=== PATIENT | female | born 1935 | race Caucasian/White ===

== ENCOUNTER → 2017-01-06 | Outpatient (CLI) | payer OTHER ==
[~2017-01-06] MED LIST: ACET-749 PO; ACET650T97 PO; ATOR10TA88 PO; CALC-388 PO; CARV25TA2 PO; CHOL20007 PO; CRG125 PO; CYAN10005 PO; HYDR25TA4 PO; LOSA1TAB PO; LOSA1TAB38 PO; MULT-931 PO; TRAM-10 PO; WARF2TAB8 PO; WARF4TAB8 PO
[2017-01-06 15:35] LABS: BASO % 0.3 %; BASO ABS # 0.02 K/uL (0-0.2); COMPLETE YES; EOS % 2.6 %; HEMATOCRIT 35.3 % (37-47); IG% 0.1 %; LYMPH % 25.4 %; LYMPH ABS # 1.75 K/uL (1.2-3.4); MEAN CORPUSCULAR HEMOGLOBIN 33.1 pg (25-34); MEAN CORPUSCULAR HGB CONC 33.1 g/dl (32-36); MEAN PLATELET VOLUME 10.3 fL (7.4-10.4); NEUT % 62.6 %; PLATELET COUNT 165 K/uL (130-400); RED BLOOD COUNT 3.53 M/uL (4.2-5.4)
[2017-01-06 15:57] LABS: BLOOD UREA NITROGEN 20 mg/dl (7-18); BUN/CREATININE RATIO 16.8 (10-20); CALCIUM 9.5 mg/dl (8.5-10.1); CARBON DIOXIDE 31 mmol/L (21-32); CHLORIDE 104 mmol/L (98-107); GLUCOSE 94 mg/dl (70-99); POTASSIUM 3.7 mmol/L (3.5-5.1); SODIUM 142 mmol/L (136-145)
[2017-01-06 15:58] LABS: ALT/SGPT 23 U/L (12-78); AST/SGOT 16 U/L (15-37); MAGNESIUM 1.8 mg/dl (1.8-2.4)
[2017-01-06 16:08] LABS: ALB/GLOB RATIO 1.2 (0.9-2); ALKALINE PHOSPHATASE 56 U/L (45-117); THYROID STIMULATING HORMONE 0.882 uIu/ml (0.300-4.500)
== END | disposition home or self-care (01) ==
LOC: C.LAB1850 14:55
PROVIDERS: ATTEND Internal Medicine
DX: E55.9 Vitamin D deficiency, unspecified (principal); E53.8 Deficiency of other specified B group vitamins; R06.02 Shortness of breath

== ENCOUNTER → 2017-03-09 | Outpatient (CLI) | payer OTHER ==
[~2017-03-09] MED LIST changes: +ATOR10TA82 PO; -ATOR10TA88 PO
--- NOTE | 2017-03-09 16:43 | DIAGNOSTIC IMAGING REPORT ---
CHEST 2 VIEWS ROUTINE HISTORY: Short of breath. COMPARISON: Chest 12/19/2013. FINDINGS: The heart is mildly enlarged. This has slightly progressed. Left-sided pacemaker. No pleural effusions. No pneumothorax. No evidence for pulmonary edema. No focal lung consolidations to suggest pneumonia. IMPRESSION: Mild cardiomegaly which has slightly increased in size. Electronically signed by: Madi Camacho M.D. 03/09/2017 4:41 PM Dictated Date/Time: 03/09/2017 4:39 PM
== END | disposition home or self-care (01) ==
LOC: C.RAD1850 16:16
PROVIDERS: ATTEND Internal Medicine
DX: R06.02 Shortness of breath (principal); R94.2 Abnormal results of pulmonary function studies; I51.7 Cardiomegaly

== ENCOUNTER → 2017-03-17 | Day surgery (SDC) | payer OTHER ==
[~2017-03-17] VITALS: Ht 162.6 cm; Wt 73.0 kg
[~2017-03-17] MED LIST changes: +LIDOCAINE HCL 2% 2 ML VIAL (20MG/ML) ONE; +PROPOFOL IV EMULSION 10 MG/ML 20 ML VIAL IV ONE
[2017-03-17 06:56] VITALS: BP 128/87; PULSE 94; TEMP 36.5; O2SAT 95; Ht 162.6 cm; Wt 73.0 kg
--- NOTE | 2017-03-17 07:54 | History & Physical Bridge Note ---
H&P Re-Evaluation Bridge Note: I have examined the patient, reviewed the History & Physical and in the interval since the performance of the History & Physical I have noted the following changes of clinical significance: No changes noted
[2017-03-17 07:56] VITALS: BP 112/56; PULSE 63; O2SAT 97
[2017-03-17 07:57] VITALS: BP 116/85; PULSE 80; O2SAT 97
[2017-03-17 07:58] VITALS: BP 126/75; PULSE 85; O2SAT 97
[2017-03-17 08:00] VITALS: BP 121/70; PULSE 81; O2SAT 97
--- NOTE | 2017-03-17 08:01 | Cardiology Procedure Brief Nt ---
Preliminary Cardiology Note Procedure Date Mar 17, 2017. Pre-Procedure Diagnosis Atrial fibrillation Post-Procedure Diagnosis Same Procedure(s) Performed Electrical cardioversion Children'S Counselor Jayshree Aircraft Captain(s) None Estimated Blood Loss None Preliminary Findings Successful cardioversion with 200J Recommendations Monitor and discharge Specimens None Anesthesia Via anesthesia dept Complication(s) None Disposition laboratory chief recovery
--- NOTE | 2017-03-17 08:47 | CARDIOVERSION ---
DATE OF OPERATION: 03/17/2017 DATE OF PROCEDURE: 03/17/2017. PROCEDURE: Electrical cardioversion. HISTORY OF PRESENT ILLNESS: This is an 81-year-old woman who has a history of pacemaker implantation, as well as asymmetric septal hypertrophy. She was identified as having atrial fibrillation on pacemaker interrogation that had been present for about 3 months and she was relatively asymptomatic. It was felt advisable to consider cardioversion; however, in order to maintain sinus rhythm if possible. She is therefore brought to the laboratory for cardioversion. She is maintained on warfarin anticoagulation with a therapeutic INR. After obtaining informed consent for the procedure, she was connected to the recording apparatus and anteroposterior patch electrodes were placed. She was anesthetized by propofol anesthetic delivered by the anesthesia department, a single 200 joule biphasic synchronized shock was delivered via the anteroposterior patches with conversion to sinus rhythm. The pacemaker was evaluated and atrial pacing threshold was excellent at 0.5 volts. The pacemaker functioned normally with atrial sensing and ventricular pacing following cardioversion. The patient tolerated the procedure well, there were no complications and she will be observed briefly and then discharged. LUIS
--- NOTE | 2017-03-17 09:09 | Discharge Instructions ---
Discharge Instructions Date of Service Mar 17, 2017. Admission Reason for Admission: Atrial fibrillation Discharge Discharge Diagnosis / Problem: Electrical cardioversion Discharge Goals Goal(s): Improve disease control Activity Recommendations Activity Limitations: resume your previous activity . Instructions / Follow-Up Instructions / Follow-Up ACTIVITY RECOMMENDATIONS: * May resume driving tomorrow. SPECIAL CARE: * May apply burn ointment for skin irritation. * Please contact physician for any lightheadedness, dizziness or palpitations. Current Hospital Diet Patient's current hospital diet: AHA Diet (Heart Healthy) Discharge Diet Recommended Diet: AHA Diet (Heart Healthy) Procedures Procedures Performed: Electrical cardioversion Pending Studies Studies pending at discharge: no Medical Emergencies . Who to Call and When: Medical Emergencies: If at any time you feel your situation is an emergency, please call 911 immediately. . Non-Emergent Contact Non-Emergency issues call your: Primary Care Provider . . "Provider Documentation" section prepared by Dillon Martell. . VTE Core Measure Inpt VTE Proph given/why not?: Warfarin (Coumadin)
[2017-03-17 09:30] VITALS: BP 122/62; PULSE 63; O2SAT 95
--- NOTE | 2017-03-17 10:06 | Anesthesiology Progress Note ---
Anesthesia Post Op Note Date & Time Mar 17, 2017 at 10:06 Vital Signs Pain Intensity: 0 Vital Signs Past 12 Hours Date Time Temp Pulse Resp B/P (MAP) Pulse Ox O2 Delivery O2 Flow Rate FiO2 03/17/17 09:30 63 16 122/62 95 Room Air 03/17/17 09:15 60 16 124/52 96 Room Air 03/17/17 09:00 60 16 120/48 96 Room Air 03/17/17 08:45 67 16 113/63 96 Room Air 03/17/17 08:30 60 16 108/49 96 Room Air 03/17/17 08:25 60 16 118/52 96 Room Air 03/17/17 08:20 62 16 106/56 96 Room Air 03/17/17 08:15 60 16 96/48 96 Room Air 03/17/17 08:10 59 16 107/59 96 Room Air 03/17/17 08:05 69 16 113/56 96 Room Air 03/17/17 08:00 81 16 121/70 97 Nasal Cannula 6 03/17/17 07:58 85 16 126/75 97 Nasal Cannula 6 03/17/17 07:57 80 16 116/85 97 Nasal Cannula 6 03/17/17 07:56 63 16 112/56 97 Nasal Cannula 6 03/17/17 06:56 36.5 94 16 128/87 95 Room Air Notes Mental Status: alert / awake / arousable, participated in evaluation Pt Amnestic to Procedure: Yes Nausea / Vomiting: adequately controlled Pain: adequately controlled Airway Patency, RR, SpO2: stable & adequate BP & HR: stable & adequate Hydration State: stable & adequate Anesthetic Complications: no major complications apparent
== END | disposition home or self-care (01) ==
LOC: C.CATH 06:42
PROVIDERS: ATTEND Internal Medicine Cardiovascular Disease
DX: I48.0 Paroxysmal atrial fibrillation (principal); I25.10 Atherosclerotic heart disease of native coronary artery without angina pectoris; Z95.0 Presence of cardiac pacemaker; I51.7 Cardiomegaly; I50.30 Unspecified diastolic (congestive) heart failure; E78.5 Hyperlipidemia, unspecified; I10 Essential (primary) hypertension; M19.90 Unspecified osteoarthritis, unspecified site; Z82.49 Family history of ischemic heart disease and other diseases of the circulatory system; Z87.891 Personal history of nicotine dependence; Z79.01 Long term (current) use of anticoagulants; I25.2 Old myocardial infarction; Z86.73 Personal history of transient ischemic attack (TIA), and cerebral infarction without residual deficits

== ENCOUNTER → 2017-06-03 | Outpatient (CLI) | payer OTHER ==
[~2017-06-03] MED LIST changes: -ACET-749 PO; -ATOR10TA82 PO; +ATOR10TA88 PO; -CRG125 PO; -LIDOCAINE HCL 2% 2 ML VIAL (20MG/ML) ONE; -LOSA1TAB38 PO; -PROPOFOL IV EMULSION 10 MG/ML 20 ML VIAL IV ONE; -TRAM-10 PO
[2017-06-03 16:35] LABS: HEMATOCRIT 38.3 % (37-47); MEAN CELL VOLUME 101.1 fL (80-100); MEAN CORPUSCULAR HEMOGLOBIN 34.3 pg (25-34); MEAN CORPUSCULAR HGB CONC 33.9 g/dl (32-36); PLATELET COUNT 156 K/uL (130-400); RED BLOOD COUNT 3.79 M/uL (4.2-5.4); WHITE BLOOD COUNT 6.99 K/uL (4.8-10.8)
[2017-06-03 16:48] LABS: ALT/SGPT 16 U/L (12-78); BLOOD UREA NITROGEN 16 mg/dl (7-18); BUN/CREATININE RATIO 12.5 (10-20); CALCIUM 9.5 mg/dl (8.5-10.1); CARBON DIOXIDE 31 mmol/L (21-32); CHLORIDE 99 mmol/L (98-107); GLUCOSE 166 mg/dl (70-99); POTASSIUM 3.5 mmol/L (3.5-5.1); SODIUM 137 mmol/L (136-145)
[2017-06-03 16:59] LABS: ALB/GLOB RATIO 1.2 (0.9-2); ALKALINE PHOSPHATASE 57 U/L (45-117); AST/SGOT 17 U/L (15-37); THYROID STIMULATING HORMONE 0.739 uIu/ml (0.300-4.500)
== END | disposition home or self-care (01) ==
LOC: C.LAB1850 14:35
PROVIDERS: ATTEND Internal Medicine Cardiovascular Disease
DX: I48.0 Paroxysmal atrial fibrillation (principal); R53.83 Other fatigue

== ENCOUNTER → 2018-01-26 | Outpatient (CLI) | payer OTHER ==
[~2018-01-26] MED LIST changes: +ATOR10TA82 PO; -ATOR10TA88 PO
[2018-01-26 12:43] LABS: ALBUMIN 3.7 gm/dl (3.4-5.0); ALT/SGPT 17 U/L (12-78); AST/SGOT 17 U/L (15-37); BLOOD UREA NITROGEN 19 mg/dl (7-18); CALCIUM 9.4 mg/dl (8.5-10.1); CARBON DIOXIDE 31 mmol/L (21-32); CHOLESTEROL 137 mg/dl (0-200); CREATININE 1.29 mg/dl (0.60-1.20); GLUCOSE 92 mg/dl (70-99); POTASSIUM 3.5 mmol/L (3.5-5.1); SODIUM 138 mmol/L (136-145)
[2018-01-26 12:45] LABS: BASO % 0.3 %; BASO ABS # 0.02 K/uL (0-0.2); EOS % 2.3 %; EOS ABS # 0.18 K/uL (0-0.5); HEMATOCRIT 40.5 % (37-47); HEMOGLOBIN 13.6 g/dL (12.0-16.0); IG# 0.03 K/uL (0.00-0.02); LYMPH % 22.3 %; LYMPH ABS # 1.74 K/uL (1.2-3.4); MEAN CORPUSCULAR HEMOGLOBIN 34.3 pg (25-34); MEAN CORPUSCULAR HGB CONC 33.6 g/dl (32-36); MEAN PLATELET VOLUME 10.6 fL (7.4-10.4); MONO % 8.1 %; MONO ABS # 0.63 K/uL (0.11-0.59); NEUT % 66.6 %; NEUT ABS # 5.19 K/uL (1.4-6.5); PLATELET COUNT 172 K/uL (130-400); RED CELL DISTRIBUTION WIDTH CV 13.6 % (11.5-14.5); RED CELL DISTRIBUTION WIDTH SD 51.2 fL (36.4-46.3); WHITE BLOOD COUNT 7.79 K/uL (4.8-10.8)
[2018-01-26 12:49] LABS: ALKALINE PHOSPHATASE 57 U/L (45-117); LDL CHOLESTEROL CALCULATED 61 mg/dl; TOTAL PROTEIN 6.8 gm/dl (6.4-8.2)
== END | disposition home or self-care (01) ==
LOC: C.LAB1850 10:02
PROVIDERS: ATTEND Internal Medicine
DX: E78.5 Hyperlipidemia, unspecified (principal); E53.8 Deficiency of other specified B group vitamins; E55.9 Vitamin D deficiency, unspecified

== ENCOUNTER 2020-07-14 14:13 | Inpatient (IN) ==
[2020-07-14 14:55] LABS: Appearance Urine Clear (Clear); Bacteria Urine Automated Negative (Negative); Bilirubin Urine Negative (Negative); Blood Urine Negative (Negative); Color Urine Yellow; Epithelial Cell Urine Auto >30 /lpf (0-5); Glucose Urine UA Negative (Negative); Ketones Urine Negative (Negative); Leukocyte Esterase Urine Trace (Negative); Nitrite Urine Negative (Negative); Protein Urine Negative (Negative); RBC Urine Automated 0-4 /hpf (0-4); Specific Gravity Urine 1.009 (1.000-1.030); Urobilinogen Urine Negative (Negative)
[2020-07-14 15:58] LABS: Basophils # (auto) 0.01 K/uL (0-0.2); Basophils % (auto) 0.1 %; Eosinophils # (auto) 0.13 K/uL (0-0.5); Eosinophils % (auto) 1.7 %; Hematocrit (blood only) 25.7 % (37-47); Hemoglobin 7.7 g/dL (12.0-16.0); Immature Granulocytes # (auto) 0.01 K/uL (0.00-0.02); Immature Granulocytes % (auto) 0.1 %; Lymphocytes # (auto) 0.93 K/uL (1.2-3.4); Lymphocytes % (auto) 11.8 %; Mean Corpuscular Hemoglobin 25.5 pg (25-34); Mean Corpuscular Volume 85.1 fL (80-100); Mean Platelet Volume 9.4 fL (7.4-10.4); Neutrophils # (auto) 5.69 K/uL (1.4-6.5); Neutrophils % (auto) 72.3 %; Platelet Count 212 K/uL (130-400); RDW Coefficient of Variation 16.8 % (11.5-14.5); RDW Standard Deviation 52.5 fL (36.4-46.3); Red Blood Count 3.02 M/uL (4.2-5.4); White Blood Count 7.87 K/uL (4.8-10.8)
--- NOTE | 2020-07-14 15:59 | XRay Report ---
SINGLE VIEW CHEST CLINICAL HISTORY: Dyspnea. FINDINGS: An AP, portable, upright chest radiograph is compared to study dated 03/09/2017 and correlat ed with chest CT dated 06/22/2012. A 2-lead cardiac pacemaker is unchanged in position and partially ob scures the left mid chest. The heart is enlarged noting atherosclerotic calcification of the thoracic aorta. The pulmonary vasculature is noncongested. The mitral annulus is densely calcified. Chronic i nterstitial thickening is similar to previous. There is bibasilar atelectasis. No airspace consolidat ion or large pleural effusion is seen. No pneumothorax is identified. The skeletal structures are ost eopenic. The bony thorax is grossly intact. Degenerative change and scoliosis is noted in the thoraci c spine. IMPRESSION: 1. Cardiomegaly and cardiac pacemaker. There is no radiographic evidence of congestive failure. 2. No airspace consolidation or large pleural effusion is identified. ACT 112: Negative or not required by law. Electronically signed by: Saul Baugh M.D. 07/14/2020 3:57 PM
[2020-07-14 16:16] LABS: BUN Creatinine Ratio 19.8 (10-20); Calcium 9.6 mg/dl (8.5-10.1); Creatinine Clr Calc Pharmacy 25.5 ml/min; Est GFR (African American) 36.8; Est GFR (Non-African American) 31.7; Magnesium 1.9 mg/dl (1.8-2.4); Potassium 3.4 mmol/L (3.5-5.1)
[2020-07-14] MEDS ORDERED: SODIUM CHLORIDE 0.9% 250 ML IV PRN ×2 (16:21→23:35)
[2020-07-14 16:22] LABS: Hypochromasia Present; Polychromasia 1+
[2020-07-14 16:29] LABS: Albumin Globulin Ratio 0.8 (0.9-2); Bilirubin,Total 0.7 mg/dl (0.2-1); Globulin 3.7 gm/dl (2.5-4.0); Total Protein 6.7 gm/dl (6.4-8.2); Troponin I 0.206 ng/ml (0-0.045)
--- NOTE | 2020-07-14 16:45 | Ultrasound Report ---
US venous doppler LE BI CLINICAL HISTORY: Leg swelling. Possible DVT COMPARISON STUDY: No previous studies for comparison. FINDINGS: Real-time and color flow Doppler imaging were performed. Flow was seen within the femoral, popliteal and calf veins with no intraluminal thrombus demonstrated. The saphenous vein is patent. IMPRESSION: No evidence of lower extremity DVT. ACT 112: Negative or not required by law. Electronically signed by: Piotr Wilson M.D. 07/14/2020 4:44 PM
[2020-07-14] MEDS ORDERED: PANTOprazole 80 MG in DEXTROSE 5% 100 ML IV ONE (17:34)
[2020-07-14] MEDS ORDERED: PANTOPRAZOLE BOLUS/DRIP 1 EA IV STA (17:34)
--- NOTE | 2020-07-14 17:54 | History & Physical Report ---
Date of Service July 14, 2020 Assessment & Plan (1) Symptomatic anemia: Transfuse 1 unit. Symptoms progressive over the last week in setting of severe aortic stenosis. Aim Hgb > 9 due to severe aortic stenosis. Suspected GI bleed. FOB pending. Continue IV pantoprazole drip Clear liquid diet now then NPO after midnight for consideration of UGI endoscopy Consult gastroenterology (2) SANTANA (dyspnea on exertion): Suspect secondary to acute anemia in setting of severe aortic stenosis. (3) Hypotension: Secondary to increased lasix dosing and suspected blood loss. Continue carvedilol and diltiazem for rate control with hold parameters. Hold losartan and lasix pending improvement in BP. (4) Severe aortic stenosis: As per cardiology. Consideration of TAVR in near future. Would need cardiac cath workup prior to referral. If dyspnea not improving with blood transfusions this may have to be considered as inaptient. (5) Atrial fibrillation, persistent: Holding anticoagulation due to suspected acute GI bleed. Rate control with carvedilol and diltiazem, will continue her usual home dosing. (6) Arteriosclerosis of coronary artery: Elevated troponin suspect secondary to demand ischemia in setting of hypotension and anemia. No chest pain to suggest ACS. Will repeat with AM labs. Holding apixaban as above. Continue carvedilol, atorvastatin Admission and Anticipated Discharge Date Admission Date: July 14, 2020 History of Present Illness Chief Complaint: Shortness of breath on exertion Primary Care Provider: Bebo Rick MD Arlin Mcclure is an 84 year old female with known LBBB, persistent atrial fibrillation, severe aortic stenosis and chronic diastolic heart failure who presents to the ER on the advice of her oil and gas superintendent due to shortness of breath on exertion and hypotension. She has become significantly more short of breath on exertion, slowly progressive over the last week, but especially over the last few days. Associated lightheadedness. No chest pain, orthopnea, PND, claudication, leg swelling or palpitations. Due to her history of heart failure she has been taking 60mg PO lasix for the last 3 days without improvement of her symptoms. She was followed up by her outpatient oil and gas superintendent today and felt no heart failure present therefore etiology undetermined and was advised to go to the ER for further workup. In the ER she was noted to be anemic with Hgb 7.7 from prior 11.3 in Jul 2019. She takes chronic anticoagulation for atrial fibrillation with apixaban. She does note prior GI upset with aspirin but has not taken this in many decades. She is taking acetaminophen for recent left ankle pain after a fall but denies any NSAID use. No abdominal pain, change in bowels, melena, weight loss, loss of appetite, nausea or vomiting. She does note a longstanding history of hemorrhoids with blood on wiping approximately once a month for many years which has been no worse than usual. Allergies Allergy/AdvReac Type Severity Reaction Status Date / Time aspirin AdvReac Mild GI UPSET Verified 07/14/20 15:53 Home Medications Home Medications Medication Instructions Recorded Confirmed Type melatonin 3 mg tablet 3 mg PO HS tab 07/12/19 07/14/20 History diltiazem HCl 180 mg 180 mg PO DAILY #90 cap 09/05/19 07/14/20 Rx capsule,extended release 24 hr atorvastatin 10 mg tablet 10 mg PO DAILY #90 tab 12/11/19 07/14/20 Rx carvedilol 25 mg tablet 25 mg PO BID #180 tab 12/11/19 07/14/20 Rx furosemide 20 mg tablet 20 mg PO DAILY #90 tab 01/16/20 07/14/20 Rx apixaban 5 mg tablet 5 mg PO BID #180 tab 01/28/20 07/14/20 Rx losartan 25 mg tablet 25 mg PO DAILY tab 06/19/20 07/14/20 History calcium carbonate [Calcium 600] 600 mg PO DAILY 07/14/20 07/14/20 History cholecalciferol (vitamin D3) 0 mcg PO DAILY 07/14/20 07/14/20 History [Vitamin D3] Past Med/Surg History Medical History Abnormal PFTs Actinic keratosis Anticoagulant long-term use Arteriosclerosis of coronary artery Atrial fibrillation, persistent CAD (coronary artery disease) Calculus of gallbladder without cholecystitis Cardiac pacemaker Diastolic congestive heart failure Dyslipidemia Hepatic cyst History of tobacco use Hypertension Hypertensive heart disease LBBB (left bundle branch block) (12/18/13) Left bundle branch block Left ventricular hypertrophy Left ventricular outflow tract obstruction Mitral regurgitation Multiple pulmonary nodules Murmur, heart Osteoarthritis Seborrheic keratosis Severe aortic stenosis Sleep disturbance SSS (sick sinus syndrome) (12/18/13) Vitamin B12 deficiency Vitamin D deficiency disease Surgical History History of total hip replacement S/P carpal tunnel release S/P hysterectomy Family History Mother Heart disease Father Heart disease Brother Heart disease Grandfather (Paternal) Stroke CHF (congestive heart failure) Aunt Stroke Denies family history of Ovarian cancer Prostate cancer Crohn's disease Myocardial infarction Breast cancer Colorectal cancer Ulcerative colitis Social History Smoking Status: Former smoker Age Started Using Tobacco: 14; Age Quit Using Tobacco: 73; packs per day: 0.5; Cigarettes Per Day: 10; Second Hand Exposure: No; Hx Alcohol Use: Yes Hx Substance Use: No Preferred Language: Danish Communication Ability: Effective [employer] Worker Required: No Beliefs That Will Affect Care: None marital status: / Current Living Situation: Alone current occupational status: retired Other Information That Helps Us Care for You: No Feels Safe at Home: Yes Safety Concerns: Feels Safe At This Time Childhood Exposure to Second-Hand Smoke: Yes (parents) Seatbelt Use: always Assistive Devices: Cane, Glasses and Walker Review of Systems Review of Systems: All systems reviewed & are unremarkable except as noted in HPI & below Physical Exam Constitutional: well developed and well nourished; no acute distress Eyes: + anicteric sclerae; normal pupil size ENMT: external ear and nose normal, oropharynx normal Mouth: + dry oral mucous membranes Neck: trachea midline, no thyromegaly Respiratory: normal respiratory effort, lungs clear to auscultation Cardiovascular: Rate/Rhythm: regular rate and + irregularly irregular Heart Sounds: + murmur (late opening 5/6 systolic murmur LUSB) Vessels: no JVD Extremities: normal capillary refill and + pedal edema (1+ equal to mid shins b/l equal); no calf tenderness Gastrointestinal (Abdomen): Inspection/Auscultation: abdomen normal to inspection and normal bowel sounds; abdomen not distended Percussion/Palpation: abdomen soft; abdomen nontender, no guarding and abdomen not rigid Musculoskeletal: no cyanosis or clubbing, extremities motor strength 5/5 Skin: no rashes, warm and dry Neurologic: moves all extremities and awake; not confused Psychiatric: A+Ox3, euthymic affect Genitourinary: no CVA tenderness Lymphatic: no cervical or axillary lymphadenopathy Results & Data Results & Data ([facility]) Vital Signs (Past 12 Hours) Vital Signs Temp Pulse Pulse Resp BP BP Pulse Ox 07/14/20 16:06 79 17 103/66 96 07/14/20 14:18 37.1 C 83 18 93/60 L 98 Diagnostic Findings SINGLE VIEW CHEST IMPRESSION: 1. Cardiomegaly and cardiac pacemaker. There is no radiographic evidence of congestive failure. 2. No airspace consolidation or large pleural effusion is identified. US venous doppler LE BI IMPRESSION: No evidence of lower extremity DVT. ECG Rate (beats per minute): 83 Rhythm: atrial fibrillation Findings: + LBBB Comparison ECG Date: from (March,) Change: the following changes noted (atrial fibrillation has replaced paced rhythm) Code Status & VTE Plan Code Status DNR/DNI as discussed with the patient VTE Prophylaxis Plan VTE Prophylaxis will be ordered: Yes Reason for no VTE drug order: Contraindicated PG Care Time/CCT Total # of Minutes Spent Total Time Spent with Patient: Total time spent is greater than 50% in coordination of care (as documented) at patient's floor/unit and/or counseling patient: Coding Level of Care Code 20676 Initial Inpt Care Lvl 3 Diagnoses Symptomatic anemia D64.9 SANTANA (dyspnea on exertion) R06.00 Hypotension I95.9 Severe aortic stenosis I35.0 Atrial fibrillation, persistent I48.19 Arteriosclerosis of coronary artery I25.10
[2020-07-14] MEDS: PANTOprazole 40 MG in DEXTROSE 5% 100 ML IV SCH ×2 (18:52→23:39)
[2020-07-14] MEDS ORDERED: ONDANSETRON INJ 2 MG/ML 2 ML VIAL IV PRN (19:57)
[2020-07-14] MEDS ORDERED: MELATONIN 3 MG TAB PO SCH (21:00)
[2020-07-14] MEDS: carvediloL 25 MG TAB PO SCH (21:15)
[2020-07-14 22:49] LABS: Hematocrit (blood only) 24.2 % (37-47); Hemoglobin 7.5 g/dL (12.0-16.0)
[2020-07-14] MEDS ORDERED: POTASSIUM CHLORIDE 20 MEQ TABCR PO STA (23:41)
--- NOTE | 2020-07-15 00:31 | Emergency Department Note ---
History of Present Illness General Chief complaint: Shortness of Breath/Dyspnea Stated complaint: CHF Time Seen by Provider: 07/14/20 15:12 Source: patient, RN notes reviewed and old records reviewed Mode of arrival: ambulatory Limitations: no limitations History of Present Illness Provider complaint: Shortness of breath with exertion Maximum Pain Intensity: 0 This patient is an 84-year-old female who presents to the emergency department from her director of math office complaining of shortness of breath with exertion. She states this has been progressive over the last week or so. She does have a history of congestive heart failure and aortic stenosis. She has increased her Lasix dosing with some benefit. Patient made an appointment with her director of math, Dr. Dunn who saw her today and found her to be hypotensive. He referred her to the emergency department for further evaluation. Patient denies any recent fevers, cough, abdominal pain, vomiting or diarrhea. She denies any urinary symptoms. She states she has had regular bowel movements. She states they have been loose recently but not black/tarry or frankly bloody. Home Medications Home Medications Medication Instructions Recorded Confirmed Type melatonin 3 mg tablet 3 mg PO HS tab 07/12/19 07/14/20 History diltiazem HCl 180 mg 180 mg PO DAILY #90 cap 09/05/19 07/14/20 Rx capsule,extended release 24 hr atorvastatin 10 mg tablet 10 mg PO DAILY #90 tab 12/11/19 07/14/20 Rx carvedilol 25 mg tablet 25 mg PO BID #180 tab 12/11/19 07/14/20 Rx furosemide 20 mg tablet 20 mg PO DAILY #90 tab 01/16/20 07/14/20 Rx apixaban 5 mg tablet 5 mg PO BID #180 tab 01/28/20 07/14/20 Rx calcium carbonate [Calcium 600] 600 mg PO DAILY 07/14/20 07/14/20 History cholecalciferol (vitamin D3) 0 mcg PO DAILY 07/14/20 07/14/20 History [Vitamin D3] Allergies Allergy/AdvReac Type Severity Reaction Status Date / Time aspirin AdvReac Mild GI UPSET Verified 07/14/20 15:53 Past Med/Surg History Medical History Abnormal PFTs Actinic keratosis Anticoagulant long-term use Arteriosclerosis of coronary artery Atrial fibrillation, persistent CAD (coronary artery disease) Calculus of gallbladder without cholecystitis Cardiac pacemaker Diastolic congestive heart failure Dyslipidemia Hepatic cyst History of tobacco use Hypertension Hypertensive heart disease LBBB (left bundle branch block) (12/18/13) Left bundle branch block Left ventricular hypertrophy Left ventricular outflow tract obstruction Mitral regurgitation Multiple pulmonary nodules Murmur, heart Osteoarthritis Seborrheic keratosis Severe aortic stenosis Sleep disturbance SSS (sick sinus syndrome) (12/18/13) Vitamin B12 deficiency Vitamin D deficiency disease Surgical History History of total hip replacement S/P carpal tunnel release S/P hysterectomy Family History Mother Heart disease Father Heart disease Brother Heart disease Grandfather (Paternal) Stroke CHF (congestive heart failure) Aunt Stroke Denies family history of Ovarian cancer Prostate cancer Crohn's disease Myocardial infarction Breast cancer Colorectal cancer Ulcerative colitis Social History Smoking Status: Former smoker Age Started Using Tobacco: 14; Age Quit Using Tobacco: 73; packs per day: 0.5; Cigarettes Per Day: 10; Second Hand Exposure: No; Hx Alcohol Use: Yes Hx Substance Use: No Preferred Language: Serbian Communication Ability: Effective Stone Cleaner Required: No Beliefs That Will Affect Care: None marital status: / Current Living Situation: Alone current occupational status: retired Feels Safe at Home: Yes Childhood Exposure to Second-Hand Smoke: Yes (parents) Seatbelt Use: always Assistive Devices: Cane, Glasses and Walker Review of Systems See HPI for pertinent positives & negatives. and A total of 10 systems reviewed and were otherwise negative Physical Exam Vital Signs Vital Signs - 24 hr 07/14/20 14:18 07/14/20 16:06 07/14/20 18:00 Temperature 37.1 C Temperature Source Oral Pulse Rate 83 91 H Pulse Rate [Apical] 79 72 Pulse Rhythm [Apical] Irregular Regular Respiratory Rate 18 18 21 Respiratory Effort / Characteristics Non-Labored Spontaneous Non-Labored Spontaneous Non-Labored Spontaneous Respiratory Depth Normal Normal Normal Respiratory Pattern Regular Blood Pressure 93/60 L 103/66 Blood Pressure [Right Arm] 103/66 103/62 Blood Pressure Mean 71 80 Blood Pressure Mean [Right Arm] 78 75 Blood Pressure Position Sitting Blood Pressure Position [Right Arm] Sitting Pulse Oximetry 98 96 96 Oxygen Delivery Method Room Air Room Air Room Air Sepsis Recent Fever Within 48 Hours No Sepsis New/Unexplained Change in Mental Status No Sepsis Action Taken by Nursing No Action Required Vital signs reviewed. General: Well-appearing 84 yo female, in no significant distress. HEENT: Pale conjunctavae, PERRLA, neck supple. MMM. Cardiovascular: Irregular, rate controlled, systolic ejection murmur Pulmonary: Clear to auscultation bilaterally, normal work of breathing. Abdomen: Soft, nontender, nondistended, positive bowel sounds. Musculoskeletal: Atraumatic, no peripheral edema. Neurologic: Patient awake alert and oriented x 3 GI:Guaiac + stool, melanotic. External hemorrhoids Skin: Warm, dry, no rash Course Administered Medications Discontinued Medications Atorvastatin Calcium (Atorvastatin 10 Mg Tab) 10 mg PO DAILY JUHI Stop: 08/14/20 08:59 Last Admin: 07/15/20 14:07 Dose: 10 mg Documented by: [id number] Calcium Carbonate (Calcium Carbonate 1250mg Tab) 1,250 mg PO DAILY JUHI Stop: 08/14/20 08:59 Last Admin: 07/15/20 14:07 Dose: 1,250 mg Documented by: [id number] Carvedilol (Carvedilol 25 Mg Tab) 25 mg PO BID JUHI Stop: 08/13/20 20:59 Last Admin: 07/15/20 14:08 Dose: 25 mg Documented by: [id number] Admin: 07/14/20 21:15 Dose: 25 mg Documented by: [id number] Diltiazem HCl (Diltiazem Hcl 180 Mg Capcr) 180 mg PO DAILY JUHI Stop: 08/14/20 08:59 Last Admin: 07/15/20 14:08 Dose: 180 mg Documented by: [id number] Pantoprazole Sodium (Protonix Bolus/Drip) 0 mls @ 1 mls/hr IV ONE STA Stop: 07/14/20 17:35 Last Admin: 07/14/20 19:11 Dose: Not Given Documented by: [id number] Pantoprazole Sodium 40 mg/ (Dextrose) 100 mls @ 20 mls/hr IV Q5H JUHI Stop: 08/13/20 17:49 Last Infusion: 07/15/20 14:01 Dose: 0 mg/hr, 0 mls/hr Documented by: [id number] Admin: 07/15/20 09:01 Dose: 8 mg/hr, 20 mls/hr Documented by: [id number] Infusion: 07/15/20 08:49 Dose: 8 mg/hr, 20 mls/hr Documented by: [id number] Admin: 07/15/20 03:49 Dose: 8 mg/hr, 20 mls/hr Documented by: [id number] Infusion: 07/15/20 03:49 Dose: 8 mg/hr, 20 mls/hr Documented by: [id number] Admin: 07/14/20 23:39 Dose: 8 mg/hr, 20 mls/hr Documented by: [id number] Infusion: 07/14/20 23:39 Dose: 8 mg/hr, 20 mls/hr Documented by: [id number] Admin: 07/14/20 18:52 Dose: 8 mg/hr, 20 mls/hr Documented by: [id number] Pantoprazole Sodium 80 mg/ (Dextrose) 120 mls @ 400 mls/hr IV NOW ONE Stop: 07/14/20 17:51 Last Infusion: 07/14/20 18:55 Dose: 0 mls/hr Documented by: [id number] Admin: 07/14/20 18:29 Dose: 400 mls/hr Documented by: [id number] Lidocaine HCl (Lidocaine Hcl 2% 2 Ml Vial/Amp(20mg/Ml)) Confirm Administered Dose 2 ml INFIL .STK-MED ONE Stop: 07/15/20 10:50 Last Admin: 07/15/20 14:28 Dose: Not Given Documented by: [id number] Melatonin (Melatonin 3 Mg Tab) 3 mg PO HS JUHI Stop: 08/13/20 20:59 Last Admin: 07/14/20 21:15 Dose: 3 mg Documented by: [id number] Potassium Chloride (Potassium Chloride 20 Meq Tabcr) 20 meq PO NOW STA Stop: 07/14/20 23:42 Last Admin: 07/15/20 00:45 Dose: 20 meq Documented by: [id number] Propofol (Propofol Iv Emulsion 10 Mg/Ml 20 Ml Vial) Confirm Administered Dose 200 mg IV .STK-MED ONE Stop: 07/15/20 10:50 Last Admin: 07/15/20 14:28 Dose: Not Given Documented by: [id number] Vitamin D (Cholecalciferol (Vitamin D) 400 Units Tablet) 400 units PO DAILY JUHI Stop: 08/14/20 08:59 Last Admin: 07/15/20 14:07 Dose: 400 units Documented by: [id number] Critical Care Time Critical Care Time: Yes Total Critical Care Time: 32 The high probability of a clinically significant, sudden or life threatening deterioration required my full and direct attention, intervention and personal management. The aggregate critical care time was 32 minutes. This time is in addition to time spent performing reported procedures but includes the following: [x] Data Review and interpretation [x] Patient assessment and monitoring of vital signs [x] Documentation [x] Medication/blood orders and management Medical Decision Making Differential Diagnosis Differential diagnosis: Etiologies such as infections, reactive airway disease, COPD, pneumonia, pleural effusion, pulmonary edema, ARDS, pneumothorax, CHF, cardiac ischemia, cardiac tamponade, dysrhythmia, anemia, pulmonary embolism, musculoskeletal, gastrointestinal process, as well as others were entertained. Medical Records Attestation: I reviewed the patient's medical records. Home Medications Current Medication List: was personally reviewed by me Laboratory Data Attestation: I reviewed the patient's lab results. Result diagrams: 07/15/20 07:38 07/15/20 07:38 Lab Results 07/14/20 07/14/20 07/14/20 Range/Units 14:33 15:50 15:50 WBC 7.87 (4.8-10.8) K/uL RBC 3.02 L (4.2-5.4) M/uL Hgb 7.7 L (12.0-16.0) g/dL Hct 25.7 L (37-47) % MCV 85.1 (80-100) fL MCH 25.5 (25-34) pg MCHC 30.0 L (32-36) g/dL RDW Std Deviation 52.5 H (36.4-46.3) fL RDW Coeff of Renetta 16.8 H (11.5-14.5) % Plt Count 212 (130-400) K/uL MPV 9.4 (7.4-10.4) fL Immature Gran % (Auto) 0.1 % Neut % (Auto) 72.3 % Lymph % (Auto) 11.8 % [place] % (Auto) 14.0 % Eos % (Auto) 1.7 % Baso % (Auto) 0.1 % Neut # (Auto) 5.69 (1.4-6.5) K/uL Lymph # (Auto) 0.93 L (1.2-3.4) K/uL [place] # (Auto) 1.10 H (0.11-0.59) K/uL Eos # (Auto) 0.13 (0-0.5) K/uL Baso # (Auto) 0.01 (0-0.2) K/uL Immature Gran # (Auto) 0.01 (0.00-0.02) K/uL Polychromasia 1+ Hypochromasia Present Sodium 140 (136-145) mmol/L Potassium 3.4 L (3.5-5.1) mmol/L Chloride 105 (98-107) mmol/L Carbon Dioxide 27 (21-32) mmol/L Anion Gap 8.0 (3-11) BUN 29 H (7-18) mg/dl Creatinine 1.48 H (0.6-1.2) mg/dl Est Cr Clr Drug Dosing 25.5 ml/min Est GFR ( Amer) 36.8 Est GFR (Non-Af Amer) 31.7 BUN/Creatinine Ratio 19.8 (10-20) Glucose 108 H (70-99) mg/dl Calcium 9.6 (8.5-10.1) mg/dl Magnesium 1.9 (1.8-2.4) mg/dl Total Bilirubin 0.7 (0.2-1) mg/dl AST 14 L (15-37) U/L ALT 15 (12-78) U/L Alkaline Phosphatase 63 (45-117) U/L Troponin I 0.206 H* (0-0.045) ng/ml NT-Pro-B Natriuret Pep 75141 H (0-1800) pg/ml Total Protein 6.7 (6.4-8.2) gm/dl Albumin 3.0 L (3.4-5.0) gm/dl Globulin 3.7 (2.5-4.0) gm/dl Albumin/Globulin Ratio 0.8 L (0.9-2) Urine Color Yellow Urine Appearance Clear (Clear) Urine pH 8.0 H (4.5-7.5) Ur Specific [place] 1.009 (1.000-1.030) Urine Protein Negative (Negative) Urine Glucose (UA) Negative (Negative) Urine Ketones Negative (Negative) Urine Blood Negative (Negative) Urine Nitrite Negative (Negative) Urine Bilirubin Negative (Negative) Urine Urobilinogen Negative (Negative) Ur Leukocyte Esterase Trace H (Negative) Urine WBC (Auto) 1-5 (0-5) /hpf Urine RBC (Auto) 0-4 (0-4) /hpf U Hyaline Cast (Auto) 5-10 H (0-5) /lpf U Epithel Cells (Auto) >30 H (0-5) /lpf Urine Bacteria (Auto) Negative (Negative) Blood Type Antibody Screen Crossmatch 07/14/20 Range/Units 16:51 WBC (4.8-10.8) K/uL RBC (4.2-5.4) M/uL Hgb (12.0-16.0) g/dL Hct (37-47) % MCV (80-100) fL MCH (25-34) pg MCHC (32-36) g/dL RDW Std Deviation (36.4-46.3) fL RDW Coeff of Renetta (11.5-14.5) % Plt Count (130-400) K/uL MPV (7.4-10.4) fL Immature Gran % (Auto) % Neut % (Auto) % Lymph % (Auto) % [place] % (Auto) % Eos % (Auto) % Baso % (Auto) % Neut # (Auto) (1.4-6.5) K/uL Lymph # (Auto) (1.2-3.4) K/uL [place] # (Auto) (0.11-0.59) K/uL Eos # (Auto) (0-0.5) K/uL Baso # (Auto) (0-0.2) K/uL Immature Gran # (Auto) (0.00-0.02) K/uL Polychromasia Hypochromasia Sodium (136-145) mmol/L Potassium (3.5-5.1) mmol/L Chloride (98-107) mmol/L Carbon Dioxide (21-32) mmol/L Anion Gap (3-11) BUN (7-18) mg/dl Creatinine (0.6-1.2) mg/dl Est Cr Clr Drug Dosing ml/min Est GFR ( Amer) Est GFR (Non-Af Amer) BUN/Creatinine Ratio (10-20) Glucose (70-99) mg/dl Calcium (8.5-10.1) mg/dl Magnesium (1.8-2.4) mg/dl Total Bilirubin (0.2-1) mg/dl AST (15-37) U/L ALT (12-78) U/L Alkaline Phosphatase (45-117) U/L Troponin I (0-0.045) ng/ml NT-Pro-B Natriuret Pep (0-1800) pg/ml Total Protein (6.4-8.2) gm/dl Albumin (3.4-5.0) gm/dl Globulin (2.5-4.0) gm/dl Albumin/Globulin Ratio (0.9-2) Urine Color Urine Appearance (Clear) Urine pH (4.5-7.5) Ur Specific [place] (1.000-1.030) Urine Protein (Negative) Urine Glucose (UA) (Negative) Urine Ketones (Negative) Urine Blood (Negative) Urine Nitrite (Negative) Urine Bilirubin (Negative) Urine Urobilinogen (Negative) Ur Leukocyte Esterase (Negative) Urine WBC (Auto) (0-5) /hpf Urine RBC (Auto) (0-4) /hpf U Hyaline Cast (Auto) (0-5) /lpf U Epithel Cells (Auto) (0-5) /lpf Urine Bacteria (Auto) (Negative) Blood Type A Negative Antibody Screen NEGATIVE Crossmatch See Detail Imaging Data Radiologist's Impression: SINGLE VIEW CHEST CLINICAL HISTORY: Dyspnea. FINDINGS: An AP, portable, upright chest radiograph is compared to study dated 03/09/2017 and correlated with chest CT dated 06/22/2012. A 2-lead cardiac pacemaker is unchanged in position and partially obscures the left mid chest. The heart is enlarged noting atherosclerotic calcification of the thoracic aorta. The pulmonary vasculature is noncongested. The mitral annulus is densely calcified. Chronic interstitial thickening is similar to previous. There is bibasilar atelectasis. No airspace consolidation or large pleural effusion is seen. No pneumothorax is identified. The skeletal structures are osteopenic. The bony thorax is grossly intact. Degenerative change and scoliosis is noted in the thoracic spine. IMPRESSION: 1. Cardiomegaly and cardiac pacemaker. There is no radiographic evidence of gianfranco estive failure. 2. No airspace consolidation or large pleural effusion is identified. ACT 112: Negative or not required by law. Electronically signed by: Saul Baugh M.D. 07/14/2020 3:57 PM Dictated: 07/14/20 1556 Transcribed: 07/14/20 1556 US venous doppler LE BI CLINICAL HISTORY: Leg swelling. Possible DVT COMPARISON STUDY: No previous studies for comparison. FINDINGS: Real-time and color flow Doppler imaging were performed. Flow was seen within the femoral, popliteal and calf veins with no intraluminal thrombus demonstrated. The saphenous vein is patent. IMPRESSION: No evidence of lower extremity DVT. ACT 112: Negative or not required by law. Electronically signed by: Piotr Wilson M.D. 07/14/2020 4:44 PM Dictated: 07/14/20 1643 Transcribed: 07/14/201642 ECG Data Attestation: I personally reviewed and interpreted this ECG as follows: Indication: + SOB/dyspnea Rate (beats per minute): 83 Rhythm: + atrial fibrillation ECG Intervals/blocks: + Left bundle branch block and + Normal QT-c ECG [place]: + Left axis deviation ECG ST segments: + repolarization abnormalities Blood Pressure Blood Pressure Findings: Low blood pressure Blood Pressure Disposition: further management by hospitalist MDM Narrative This pt was evaluated and appeared to be in no distress. IV access was obtained and lab work was drawn. An order for cardiac monitoring was placed and the pt was noted to be in a rate controlled a fib with periodic paced beats. Lab work noted anemia. Stool guaiac was positive and pt had episodes of hypotension. IV portonix was administered and pt was consented for blood transfusion. Case was d/w the hospitalist service for further management. She was made aware of findings and plan and agrees. Impression & Plan GIB (gastrointestinal bleeding), Anemia, Atrial fibrillation with controlled ventricular rate Discharge Plan Visit Data Chief Complaint: Shortness of Breath/Dyspnea Stated Complaint: CHF ED Provider: Ceci Rubio Discharge Problem: GIB (gastrointestinal bleeding), Anemia, Atrial fibrillation with controlled ventricular rate Patient Disposition: Admitted As Inpatient Condition: Good Discharge Instructions Interventions: ED Discharge Assessment Last Done: 07/14/20 19:46 Discharge Problem: GIB (gastrointestinal bleeding) Qualifiers: GI bleed type/associated pathology: unspecified gastrointestinal hemorrhage type Qualified Code(s): K92.2 - Gastrointestinal hemorrhage, unspecified Anemia Qualifiers: Anemia type: iron deficiency Iron deficiency anemia type: chronic blood loss Qualified Code(s): D50.0 - Iron deficiency anemia secondary to blood loss (chronic)
[2020-07-15] MEDS: PANTOprazole 40 MG in DEXTROSE 5% 100 ML IV SCH ×2 (03:49→09:01)
[2020-07-15 07:54] LABS: Hematocrit (blood only) 32.4 % (37-47); Hemoglobin 10.2 g/dL (12.0-16.0); Mean Corpuscular Hemoglobin 26.4 pg (25-34); Mean Corpuscular Hgb Conc 31.5 g/dL (32-36); Mean Corpuscular Volume 83.9 fL (80-100); Mean Platelet Volume 9.7 fL (7.4-10.4); Platelet Count 180 K/uL (130-400); RDW Coefficient of Variation 15.7 % (11.5-14.5); RDW Standard Deviation 48.1 fL (36.4-46.3); Red Blood Count 3.86 M/uL (4.2-5.4); White Blood Count 8.67 K/uL (4.8-10.8)
[2020-07-15 08:23] LABS: BUN Creatinine Ratio 18.1 (10-20); Calcium 9.5 mg/dl (8.5-10.1); Creatinine Clr Calc Pharmacy 26.3 ml/min; Est GFR (Non-African American) 32.8; Potassium 3.6 mmol/L (3.5-5.1)
[2020-07-15 08:29] LABS: Troponin I 0.227 ng/ml (0-0.045)
[2020-07-15] MEDS ORDERED: LOSARTAN POTASSIUM 25 MG TAB PO SCH (09:00)
[2020-07-15] MEDS ORDERED: CHOLECALCIFEROL (VITAMIN D) 400 UNITS TABLET PO SCH (09:00)
[2020-07-15] MEDS ORDERED: dilTIAZem HCL 180 MG CAPCR PO SCH (09:00)
[2020-07-15] MEDS ORDERED: CALCIUM CARBONATE 1250MG TAB PO SCH (09:00)
[2020-07-15] MEDS ORDERED: ATORVASTATIN 10 MG TAB PO SCH (09:00)
--- NOTE | 2020-07-15 09:56 | Gastrointestinal Consultation ---
Date of Consultation July 15, 2020 Assessment & Plan (1) Symptomatic anemia: (2) SANTANA (dyspnea on exertion): Diff dx: PUD vs AVM vs diverticular or hemorrhoidal (less likely as no visible bleeding) vs malignancy vs other. 1. NPO for now. 2. EGD with Dr. Nunn today for further evaluation. 3. Continue PPI ggt at 8 mg/hr for now. 4. Additional recommendations pending results of testing. Thank you for allowing us to participate in the care of this pleasant patient. If you have any questions or concerns, please do not hesitate to contact us. Supervising Physician Co-Signing Physician Notes I personally evaluated the patient and agree with the findings as documented by FRANKLIN Brown Exam: abd: soft, nt, nd Proceed with EGD. risks/benefits and procedure discussed with patient, who agrees to proceed History of Present Illness Reason for Consultation: GIB Requesting Physician: Dr. Beltran Attending Physician: Andrew Szymanski DO History of Present Illness Arlin Mcclure is a pleasant 84 year-old female with a history of atrial fibrillation admitted to the hospital with symptomatic anemia. She began to have shortness of breath which was worse with exertion approximately one week prior to arrival. She denies any abdominal pain, n/v, loss of appetite, melena, hematochezia or hematemesis. She also denies any cough, chest pain and palpitations. No syncope or dizziness. She was noted to have a H&H of 7.7/25.7 on initial laboratory evaluation but this morning was 10.2 and 32.4 after blood transfusion. She does use chronic anticoagulation therapy for atrial fibrillation. No ibuprofen or aspirin use. Allergies Allergy/AdvReac Type Severity Reaction Status Date / Time aspirin AdvReac Mild GI UPSET Verified 07/14/20 15:53 Home Medications Home Medications Medication Instructions Recorded Confirmed Type melatonin 3 mg tablet 3 mg PO HS tab 07/12/19 07/14/20 History diltiazem HCl 180 mg 180 mg PO DAILY #90 cap 09/05/19 07/14/20 Rx capsule,extended release 24 hr atorvastatin 10 mg tablet 10 mg PO DAILY #90 tab 12/11/19 07/14/20 Rx carvedilol 25 mg tablet 25 mg PO BID #180 tab 12/11/19 07/14/20 Rx furosemide 20 mg tablet 20 mg PO DAILY #90 tab 01/16/20 07/14/20 Rx apixaban 5 mg tablet 5 mg PO BID #180 tab 01/28/20 07/14/20 Rx losartan 25 mg tablet 25 mg PO DAILY tab 06/19/20 07/14/20 History calcium carbonate [Calcium 600] 600 mg PO DAILY 07/14/20 07/14/20 History cholecalciferol (vitamin D3) 0 mcg PO DAILY 07/14/20 07/14/20 History [Vitamin D3] Patient History Medical History Abnormal PFTs Actinic keratosis Anticoagulant long-term use Arteriosclerosis of coronary artery Atrial fibrillation, persistent CAD (coronary artery disease) Calculus of gallbladder without cholecystitis Cardiac pacemaker Diastolic congestive heart failure Dyslipidemia Hepatic cyst History of tobacco use Hypertension Hypertensive heart disease LBBB (left bundle branch block) (12/18/13) Left bundle branch block Left ventricular hypertrophy Left ventricular outflow tract obstruction Mitral regurgitation Multiple pulmonary nodules Murmur, heart Osteoarthritis Seborrheic keratosis Severe aortic stenosis Sleep disturbance SSS (sick sinus syndrome) (12/18/13) Vitamin B12 deficiency Vitamin D deficiency disease Surgical History History of total hip replacement S/P carpal tunnel release S/P hysterectomy Family History Mother Heart disease Father Heart disease Brother Heart disease Grandfather (Paternal) Stroke CHF (congestive heart failure) Aunt Stroke Denies family history of Ovarian cancer Prostate cancer Crohn's disease Myocardial infarction Breast cancer Colorectal cancer Ulcerative colitis Social History Smoking Status: Former smoker Age Started Using Tobacco: 14; Age Quit Using Tobacco: 73; packs per day: 0.5; Cigarettes Per Day: 10; Second Hand Exposure: No; Hx Alcohol Use: Yes Hx Substance Use: No Preferred Language: Citizen Of [place] Communication Ability: Effective 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 Beliefs That Will Affect Care: None marital status: / Current Living Situation: Alone current occupational status: retired Other Information That Helps Us Care for You: No Feels Safe at Home: Yes Safety Concerns: Feels Safe At This Time Childhood Exposure to Second-Hand Smoke: Yes (parents) Seatbelt Use: always Assistive Devices: Cane, Glasses and Walker Review of Systems Review of Systems: All systems reviewed & are unremarkable except as noted in HPI & below Physical Exam Constitutional: WD/WN, vitals as above Eyes: EOM intact bilaterally Neck: normal appearance Respiratory: normal respiratory effort, lungs clear to auscultation Cardiovascular: Rate/Rhythm: + irregularly irregular Heart Sounds: no murmur Gastrointestinal (Abdomen): normal bowel sounds, soft, nontender, no hepatosplenomegaly Inspection/Auscultation: abdomen not distended Musculoskeletal: Extremities: no cyanosis no lower extremity edema Skin: no rashes, warm and dry Neurologic: moves all extremities Psychiatric: A+Ox3, euthymic affect Results & Data ([facility]) Vital Signs (Past 12 Hours) Vital Signs Temp Pulse Pulse Resp BP BP Pulse Ox 07/15/20 07:42 36.7 C 80 18 93 07/15/20 07:10 36.7 C 97 H 20 110/63 92 07/15/20 06:20 36.7 C 90 22 119/78 92 07/15/20 05:45 36.8 C 81 18 118/80 92 07/15/20 05:30 36.7 C 88 16 115/75 92 07/15/20 05:21 36.7 C 91 H 14 111/72 93 07/15/20 04:46 36.8 C 91 H 18 100/67 93 07/15/20 03:57 36.8 C 79 16 104/67 94 07/15/20 02:59 36.8 C 91 H 18 91/55 L 93 07/15/20 02:29 37.0 C 77 16 91/56 L 93 07/15/20 02:14 36.8 C 89 16 102/59 L 91 07/15/20 01:52 36.9 C 79 18 100/62 94 07/15/20 00:22 37.0 C 73 18 82/42 L 95 07/14/20 23:35 72 Laboratory Results Abnormal lab results 07/14/20 07/14/20 07/14/20 Range/Units 14:33 15:50 15:50 RBC 3.02 L (4.2-5.4) M/uL Hgb 7.7 L (12.0-16.0) g/dL Hct 25.7 L (37-47) % MCHC 30.0 L (32-36) g/dL RDW Std Deviation 52.5 H (36.4-46.3) fL RDW Coeff of Renetta 16.8 H (11.5-14.5) % Lymph # (Auto) 0.93 L (1.2-3.4) K/uL Otoe # (Auto) 1.10 H (0.11-0.59) K/uL Potassium 3.4 L (3.5-5.1) mmol/L BUN 29 H (7-18) mg/dl Creatinine 1.48 H (0.6-1.2) mg/dl Glucose 108 H (70-99) mg/dl AST 14 L (15-37) U/L Troponin I 0.206 H* (0-0.045) ng/ml NT-Pro-B Natriuret Pep 10860 H (0-1800) pg/ml Albumin 3.0 L (3.4-5.0) gm/dl Albumin/Globulin Ratio 0.8 L (0.9-2) Urine pH 8.0 H (4.5-7.5) Ur Leukocyte Esterase Trace H (Negative) U Hyaline Cast (Auto) 5-10 H (0-5) /lpf U Epithel Cells (Auto) >30 H (0-5) /lpf Crossmatch 07/14/20 07/14/20 07/15/20 Range/Units 16:51 22:36 07:38 RBC 3.86 L (4.2-5.4) M/uL Hgb 7.5 L 10.2 L (12.0-16.0) g/dL Hct 24.2 L 32.4 L (37-47) % MCHC 31.5 L (32-36) g/dL RDW Std Deviation 48.1 H (36.4-46.3) fL RDW Coeff of Renetta 15.7 H (11.5-14.5) % Lymph # (Auto) (1.2-3.4) K/uL Otoe # (Auto) (0.11-0.59) K/uL Potassium (3.5-5.1) mmol/L BUN (7-18) mg/dl Creatinine (0.6-1.2) mg/dl Glucose (70-99) mg/dl AST (15-37) U/L Troponin I (0-0.045) ng/ml NT-Pro-B Natriuret Pep (0-1800) pg/ml Albumin (3.4-5.0) gm/dl Albumin/Globulin Ratio (0.9-2) Urine pH (4.5-7.5) Ur Leukocyte Esterase (Negative) U Hyaline Cast (Auto) (0-5) /lpf U Epithel Cells (Auto) (0-5) /lpf Crossmatch See Detail 07/15/20 Range/Units 07:38 RBC (4.2-5.4) M/uL Hgb (12.0-16.0) g/dL Hct (37-47) % MCHC (32-36) g/dL RDW Std Deviation (36.4-46.3) fL RDW Coeff of Renetta (11.5-14.5) % Lymph # (Auto) (1.2-3.4) K/uL O[place]e # (Auto) (0.11-0.59) K/uL Potassium (3.5-5.1) mmol/L BUN 26 H (7-18) mg/dl Creatinine 1.44 H (0.6-1.2) mg/dl Glucose 106 H (70-99) mg/dl AST (15-37) U/L Troponin I 0.227 H* (0-0.045) ng/ml NT-Pro-B Natriuret Pep (0-1800) pg/ml Albumin (3.4-5.0) gm/dl Albumin/Globulin Ratio (0.9-2) Urine pH (4.5-7.5) Ur Leukocyte Esterase (Negative) U Hyaline Cast (Auto) (0-5) /lpf U Epithel Cells (Auto) (0-5) /lpf Crossmatch PG Care Time/CCT Total # of Minutes Spent Total Time Spent with Patient: Total time spent is greater than 50% in coordination of care (as documented) at patient's floor/unit and/or counseling patient: Coding Level of Care Code 68993 Initial Inpt Care Lvl 3 Diagnoses Symptomatic anemia D64.9 SANTANA (dyspnea on exertion) R06.00
--- NOTE | 2020-07-15 10:23 | Anesthesiology Consultation ---
Date of Service July 15, 2020 History Surgery Operation Date: 07/15/20 17:30 Proposed Procedures p Esophagogastroduodenoscopy Dr. Nunn - Maxime Nunn MD Height/Weight Height: 5 ft 4 in Weight: 66.5 kg Allergies Allergy/AdvReac Type Severity Reaction Status Date / Time aspirin AdvReac Mild GI UPSET Verified 07/14/20 15:53 Medications Home Medications Medication Instructions Recorded Confirmed Last Taken melatonin 3 mg tablet 3 mg PO HS tab 07/12/19 07/14/20 07/13/20 diltiazem HCl 180 mg 180 mg PO DAILY #90 cap 09/05/19 07/14/20 07/14/20 capsule,extended release 24 hr atorvastatin 10 mg tablet 10 mg PO DAILY #90 tab 12/11/19 07/14/20 07/14/20 carvedilol 25 mg tablet 25 mg PO BID #180 tab 12/11/19 07/14/20 07/14/20 08:00 furosemide 20 mg tablet 20 mg PO DAILY #90 tab 01/16/20 07/14/20 07/14/20 apixaban 5 mg tablet 5 mg PO BID #180 tab 01/28/20 07/14/20 07/14/20 08:00 losartan 25 mg tablet 25 mg PO DAILY tab 06/19/20 07/14/20 07/14/20 calcium carbonate [Calcium 600] 600 mg PO DAILY 07/14/20 07/14/20 07/14/20 cholecalciferol (vitamin D3) 0 mcg PO DAILY 07/14/20 07/14/20 07/14/20 [Vitamin D3] Active Medications Generic Name Dose Route Start Last Admin Trade Name Joao PRN Reason Stop Dose Admin Carvedilol 25 mg 07/14/20 21:00 07/14/20 21:15 Carvedilol 25 Mg Tab PO 08/13/20 20:59 25 mg BID JUHI Administration Pantoprazole Sodium 40 mg/ 100 mls @ 20 mls/hr 07/14/20 17:50 07/15/20 09:01 Dextrose IV 08/13/20 17:49 8 mg/hr Q5H JUHI 20 mls/hr Administration 8 MG/HR Melatonin 3 mg 07/14/20 21:00 07/14/20 21:15 Melatonin 3 Mg Tab PO 10/28/20 20:59 3 mg HS JUHI Administration NPO Date Last Intake of Fluids: 07/14/20 Time Last Intake of Fluids: 20:00 Date Last Intake of Solids: 07/14/20 Time Last Intake of Solids: 20:00 Past Medical History Medical History Abnormal PFTs Actinic keratosis Anticoagulant long-term use Arteriosclerosis of coronary artery Atrial fibrillation, persistent CAD (coronary artery disease) Calculus of gallbladder without cholecystitis Cardiac pacemaker Diastolic congestive heart failure Dyslipidemia Hepatic cyst History of tobacco use Hypertension Hypertensive heart disease LBBB (left bundle branch block) (12/18/13) Left bundle branch block Left ventricular hypertrophy Left ventricular outflow tract obstruction Mitral regurgitation Multiple pulmonary nodules Murmur, heart Osteoarthritis Seborrheic keratosis Severe aortic stenosis Sleep disturbance SSS (sick sinus syndrome) (12/18/13) Vitamin B12 deficiency Vitamin D deficiency disease Past Family History Family History Mother Heart disease Father Heart disease Brother Heart disease Grandfather (Paternal) Stroke CHF (congestive heart failure) Aunt Stroke Denies family history of Ovarian cancer Prostate cancer Crohn's disease Myocardial infarction Breast cancer Colorectal cancer Ulcerative colitis Past Surgical History Surgical History History of total hip replacement S/P carpal tunnel release S/P hysterectomy Social History Smoking Status: Former smoker tobacco type: cigarettes Smoking cigarettes per day: 10 Hx Alcohol Use: Yes Hx Substance Use: No Physical Exam Vital Signs Last Vital Signs Temp 37.3 C 07/15/20 10:06 Pulse 91 H 07/15/20 10:06 Resp 20 07/15/20 10:06 BP 132/97 07/15/20 10:06 Pulse Ox 94 07/15/20 10:06 Testing Laboratory Results 07/15/20 07:38 07/15/20 07:38 Urine Color Yellow 07/14/20 14:33 Urine Appearance Clear (Clear) 07/14/20 14:33 Urine pH 8.0 (4.5-7.5) H 07/14/20 14:33 Ur Specific Erwin 1.009 (1.000-1.030) 07/14/20 14:33 Urine Protein Negative (Negative) 07/14/20 14:33 Urine Glucose (UA) Negative (Negative) 07/14/20 14:33 Urine Ketones Negative (Negative) 07/14/20 14:33 Urine Nitrite Negative (Negative) 07/14/20 14:33 Ur Leukocyte Esterase Trace (Negative) H 07/14/20 14:33 Urine WBC (Auto) 1-5 /hpf (0-5) 07/14/20 14:33 Urine RBC (Auto) 0-4 /hpf (0-4) 07/14/20 14:33 U Hyaline Cast (Auto) 5-10 /lpf (0-5) H 07/14/20 14:33 U Epithel Cells (Auto) >30 /lpf (0-5) H 07/14/20 14:33 Urine Bacteria (Auto) Negative (Negative) 07/14/20 14:33 Blood Type A Negative 07/14/20 16:51 Antibody Screen NEGATIVE 07/14/20 16:51
--- NOTE | 2020-07-15 10:43 | GI REPORT ---
Addendum Number: 1 Addendum Date: 07/15/2020 11:08:48 AM correction, return to hospital for ongoing care. clear liquid diet today and tomorrow, colonoscopy on to further evaluate prep starting tomorrow evening Maxime Nunn MD 07/15/2020 11:09:47 AM This report has been signed electronically. Patient Name: Arlin Mcclure Procedure Date: 07/15/2020 10:14 AM Date of : 1935 Admit Type: Inpatient Age: 84 Gender: Female Attending MD: Maxime Nunn MD Procedure: Upper GI endoscopy Providers: Maxime Nunn MD Referring MD: Pa Dunn Indications: Unexplained iron deficiency anemia Medicines: Monitored Anesthesia Care Complications: No immediate complications. Estimated blood loss: None. Estimated Blood Loss: Estimated blood loss: none. Procedure: Pre-Anesthesia Assessment: - Prior Anticoagulants: The patient has taken no previous anticoagulant or antiplatelet agents. - ASA Grade Assessment: II - A patient with mild systemic disease. After obtaining informed consent, the endoscope was passed under direct vision. Throughout the procedure, the patient's blood pressure, pulse, and oxygen saturations were monitored continuously. The Endoscope was introduced through the mouth, and advanced to the second part of duodenum. The upper GI endoscopy was accomplished without difficulty. The patient tolerated the procedure well. Findings: The examined esophagus was normal. Diffuse mild inflammation characterized by erythema was found in the stomach. Biopsies were taken with a cold forceps for Helicobacter pylori testing. Estimated blood loss: none. The duodenal bulb and second portion of the duodenum were normal. no ulcers nor AVMs nor blood noted throughout exam. Impression: - Normal esophagus. - Gastritis. Biopsied. - Normal duodenal bulb and second portion of the duodenum. Recommendation: - Discharge patient to home (with escort). - Resume previous diet today. - Await pathology results. Maxime Nunn MD 07/15/2020 10:43:21 AM This report has been signed electronically. Note Initiated On: 07/15/2020 10:14 AM Number of Addenda: 1 I attest to the content of the Intraoperative Record and orders documented therein, exceptions below {[id number]}
[2020-07-15] MEDS ORDERED: LIDOCAINE HCL 2% 2 ML VIAL/AMP(20MG/ML) INFIL ONE (10:49)
[2020-07-15] MEDS ORDERED: PROPOFOL IV EMULSION 10 MG/ML 20 ML VIAL IV ONE (10:49)
--- NOTE | 2020-07-15 10:57 | Anesthesiology Progress Note ---
Date of Service July 15, 2020 Anesthesia Post Procedure Vital Signs Vital Signs: Temp Pulse Pulse Pulse Resp BP BP 07/15/20 10:47 96 H 85 16 112/86 07/15/20 10:06 37.3 C 91 H 20 132/97 07/15/20 07:42 36.7 C 80 18 07/15/20 07:10 36.7 C 97 H 20 110/63 07/15/20 06:20 36.7 C 90 22 119/78 07/15/20 05:45 36.8 C 81 18 118/80 07/15/20 05:30 36.7 C 88 16 115/75 07/15/20 05:21 36.7 C 91 H 14 111/72 07/15/20 04:46 36.8 C 91 H 18 100/67 07/15/20 03:57 36.8 C 79 16 104/67 07/15/20 02:59 36.8 C 91 H 18 91/55 L 07/15/20 02:29 37.0 C 77 16 91/56 L 07/15/20 02:14 36.8 C 89 16 102/59 L 07/15/20 01:52 36.9 C 79 18 100/62 07/15/20 00:22 37.0 C 73 18 82/42 L 07/14/20 23:35 72 07/14/20 21:17 72 18 110/66 07/14/20 21:02 36.7 C 76 18 106/62 07/14/20 20:02 76 18 106/58 L 07/14/20 19:45 37.1 C 78 20 111/59 L 07/14/20 19:32 36.7 C 72 20 114/60 07/14/20 19:15 36.9 C 82 20 117/72 07/14/20 19:02 37.2 C 75 20 110/62 07/14/20 19:00 37.2 C 75 20 110/62 07/14/20 18:27 81 21 99/56 L 07/14/20 18:00 72 21 103/62 07/14/20 16:06 91 H 79 18 103/66 103/66 07/14/20 14:18 37.1 C 83 18 93/60 L Pulse Ox 07/15/20 10:47 96 07/15/20 10:06 94 07/15/20 07:42 93 07/15/20 07:10 92 07/15/20 06:20 92 07/15/20 05:45 92 07/15/20 05:30 92 07/15/20 05:21 93 07/15/20 04:46 93 07/15/20 03:57 94 07/15/20 02:59 93 07/15/20 02:29 93 07/15/20 02:14 91 07/15/20 01:52 94 07/15/20 00:22 95 07/14/20 23:35 07/14/20 21:17 98 07/14/20 21:02 98 07/14/20 20:02 98 07/14/20 19:45 97 07/14/20 19:32 97 07/14/20 19:15 98 07/14/20 19:02 97 07/14/20 19:00 96 07/14/20 18:27 95 07/14/20 18:00 96 07/14/20 16:06 96 07/14/20 14:18 98 Transfer of Care Handoff Completed per policy Notes Mental Status: alert / awake / arousable and participated in evaluation Patient Amnestic to Procedure: Yes Nausea / Vomiting: adequately controlled Pain: adequately controlled Airway Patency, RR, SpO2: stable & adequate BP & HR: stable & adequate Hydration State: stable & adequate Anesthetic Complications: no major complications apparent
--- NOTE | 2020-07-15 11:03 | Procedure Note ---
Procedure Note Date of Service July 15, 2020 GI brief procedure note EGD findings: no evidence of blood,ulcers, AVMs throughout entire colon. gastritis, bx'd. Recs: colonoscopy on , prep tuesday night clear liquids today and tomorrow supportive care Maxime Nunn MD Gastroenterology Coding
--- NOTE | 2020-07-15 12:52 | Discharge Summary ---
Date of Service July 15, 2020 Admission HPI Per Admitting Provider Arlin Mcclure is an 84 year old female with known LBBB, persistent atrial fibrillation, severe aortic stenosis and chronic diastolic heart failure who presents to the ER on the advice of her hazmat cdl driver due to shortness of breath on exertion and hypotension. She has become significantly more short of breath on exertion, slowly progressive over the last week, but especially over the last few days. Associated lightheadedness. No chest pain, orthopnea, PND, claudication, leg swelling or palpitations. Due to her history of heart failure she has been taking 60mg PO lasix for the last 3 days without improvement of her symptoms. She was followed up by her outpatient hazmat cdl driver today and felt no heart failure present therefore etiology undetermined and was advised to go to the ER for further workup. In the ER she was noted to be anemic with Hgb 7.7 from prior 11.3 in Jul 2019. She takes chronic anticoagulation for atrial fibrillation with apixaban. She does note prior GI upset with aspirin but has not taken this in many decades. She is taking acetaminophen for recent left ankle pain after a fall but denies any NSAID use. No abdominal pain, change in bowels, melena, weight loss, loss of appetite, nausea or vomiting. She does note a longstanding history of hemorrhoids with blood on wiping approximately once a month for many years which has been no worse than usual. Principal Diagnosis Dyspnea due to severe aortic stenosis and anemia Discharge Exam Constitutional WD/WN, vitals as above Eyes PERRL, conjunctivae normal, anicteric sclerae ENMT external ear and nose normal, oropharynx normal Neck trachea midline, no thyromegaly Respiratory normal respiratory effort, lungs clear to auscultation Cardiovascular Rate/Rhythm: regular rate and + irregularly irregular Heart Sounds: normal S1, normal S2 and + murmur (systolic) Vessels: no JVD Extremities: normal capillary refill; no edema Gastrointestinal (Abdomen) normal bowel sounds, soft, nontender, no hepatosplenomegaly Musculoskeletal no cyanosis or clubbing, extremities motor strength 5/5 Skin no rashes, warm and dry Neurologic patellar DTR's 2+ bilat, sensation intact and PERRL, EOMI, accommodation nl, no face palsy, no dysarthria Psychiatric A+Ox3, euthymic affect Lymphatic no cervical or axillary lymphadenopathy Discharge Data Allergies Allergy/AdvReac Type Severity Reaction Status Date / Time aspirin AdvReac Mild GI UPSET Verified 07/22/20 13:25 Consultations 07/14/20 17:46 ED Decision to Admit Stat 07/14/20 19:57 Consult Gastroenterology Routine Procedures Performed Operation Date: 07/15/20 17:30 Actual Procedures p EGD Biopsy Cytology - Maxime Nunn MD Ordered Studies 07/14/20 15:12 US venous doppler LE Stat Hospital Course (1) Symptomatic anemia: Transfuse 1 unit. Symptoms progressive over the last week in setting of severe aortic stenosis. Hb now 10 EGD on 07/15 with no ulcers, no signs of bleeding symptoms completely resolved at time of discharge GI recommends colonoscopy as outpatient to complete work up (2) SANTANA (dyspnea on exertion): Suspect secondary to severe aortic stenosis follow up with Dr. Dunn (3) Hypotension: resolved, likely from anemia but also from increasing doses of Lasix at home will discontinue Losartan, hold Lasix for now, prefer higher blood pressures with (4) Severe aortic stenosis: As per cardiology. Consideration of TAVR in near future certainly her dyspnea on exertion would be due to (5) Atrial fibrillation, persistent: continue anticoagulation, no signs of bleeding on EGD Rate control with carvedilol and diltiazem, will continue her usual home dosing. (6) Arteriosclerosis of coronary artery: Elevated troponin suspect secondary to demand ischemia in setting of hypotension and anemia. No chest pain to suggest ACS Holding apixaban as above, resume on discharge Continue carvedilol, atorvastatin Total Time Total Time Spent Total Time Spent (In Minutes): 40 minutes Total Time Includes: Examination of the Patient, Discharge Planning, Medication Reconciliation and Communication With Other Providers (Dr. Dunn) Discharge Plan Discharge Items Patient Disposition: Home - Self-Care Reason For Visit: SYMPTOMATIC ANEMIA Discharge Diagnosis: Symptomatic anemia Severe aortic stenosis Condition on Discharge: Good Goals: follow up with Dr. Dunn about severe aortic stenosis Activity: Resume your previous activity Non-emergency contact: Primary Care Provider and Manager Health Call non-emergency contact if: you have any medication questions and your symptoms worsen Follow-up/Referrals: Pa Dunn Jr, MD, FAC [Physician] - 07/18/20 1:30 pm (You have an appt with Dr Dunn on 07/18 1:30pm) Bebo Rick MD [Primary Care Provider] - 07/22/20 1:20 pm (You have an appt with Dr. Barbosa on Sunday 07/22 at 1:20pm) Diet: Heart Healthy and Low Sodium (2gm) Fluids: 2000ml (8 cups) Addtl Attending Provider Instructions: Medications: - LOSARTAN: stop this medication as higher blood pressures are preferred with aortic stenosis - LASIX: resume taking only 20mg a day Symptomatic anemia: hemoglobin was low at 7.7 and this was down by 4 grams but previous lab work was one year ago likely represents a very slow blood loss EGD did not show any ulcers in stomach or duodenum, no signs of bleeding recommend colonoscopy as outpatient Hb is up to 10 after being transfused 3 units at time of admission Severe aortic stenosis need to follow up with Dr. Dunn, discuss a referral to tertiary care to be evaluated for TAVR (transcutaneous aortic valve replacement) symptoms of severe aortic stenosis include chest pain/pressure, shortness of breath, passing out Pending Studies at Discharge: Yes Studies:: gastritis biopsies Stand-Alone Forms: [facility] [employer], Smoking Cessation Medications and DC Order Prescriptions: Continued diltiazem HCl 180 mg capsule,extended release 24hr 180 mg PO DAILY Qty: 90 RF: 3 atorvastatin 10 mg tablet 10 mg PO DAILY Qty: 90 RF: 3 carvedilol 25 mg tablet 25 mg PO BID Qty: 180 RF: 3 apixaban 5 mg tablet 5 mg PO BID Qty: 180 RF: 3 calcium carbonate [Calcium 600] 600 mg calcium (1,500 mg) Tablet 600 mg PO DAILY RF: 0 Discontinued losartan 25 mg tablet 25 mg PO DAILY RF: 0 No Action ferrous gluconate 324 mg (37.5 mg iron) tablet 324 mg PO BID Qty: 90 RF: 3 melatonin 3 mg tablet 3 mg PO HS PRN (Reason: sleep) RF: 0 furosemide 20 mg tablet 20 mg PO DAILY Qty: 90 RF: 3 furosemide 20 mg tablet 20 mg PO DAILY PRN (Reason: weight gain) Qty: 90 RF: 3 cholecalciferol (vitamin D3) [Vitamin D3] 25 mcg (1,000 unit) tablet 2,000 unit PO DAILY RF: 0 Discharge Orders: Discharge Order (Routine); Ordered 07/15/20 Ordered By: Andrew Szymanski Admission Data Admit Date/Time: 07/14/20 18:23 Attending Provider: Andrew Szymanski Admit Provider: Shashi Beltran Primary Care Provider: Bebo Rick V. Other Providers: Shashi Beltran ; Mark Grover Other Interventions: Discharge Summary Assessment (RN) Last Done: 07/15/20 13:38 Coding Level of Care Code D/C Day Management >30 mins Diagnoses Symptomatic anemia D64.9 SANTANA (dyspnea on exertion) R06.00 Hypotension I95.9 Severe aortic stenosis I35.0 Atrial fibrillation, persistent I48.19 Arteriosclerosis of coronary artery I25.10
[2020-07-15] MEDS: carvediloL 25 MG TAB PO SCH (14:08)
--- NOTE | 2020-07-15 21:54 | Electrocardiogram Report ---
Test Reason : Blood Pressure : / mmHG Vent. Rate : 083 BPM Atrial Rate : 078 BPM P-R Int : 000 ms QRS Dur : 166 ms QT Int : 444 ms P-R-T Axes : 000 -49 138 degrees QTc Int : 521 ms Atrial fibrillation Left axis deviation Left bundle branch block Abnormal ECG When compared with ECG of 17-MAR-2017 08:11, Atrial fibrillation has replaced AV pacing Confirmed by Adama Shine ([id number]) on 07/15/2020 9:54:10 PM Referred By: Pa Dunn Confirmed By:Adama Shine
== END 2020-07-15 14:49 | disposition home or self-care (01) | DRG 378 ==
LOC: ED 14:13 → SUATTDRO 18:23 → 2N 18:23